=== PATIENT | female | born 1970 | race Caucasian/White ===

== ENCOUNTER 2017-06-03 23:18 | Emergency (ER) | payer MEDICARE, OTHER ==
[~2017-06-03] VITALS: Ht 157.5 cm; Wt 109.5 kg
[~2017-06-03 23:18] MED LIST: CLON.2 PO; COZA100T PO; GEMF600 PO; NORV10TA PO; OXYC30TA3 PO; PREG75 PO; ZOFR4TAB3 SL
[2017-06-03 23:27] VITALS: BP 177/89; PULSE 74; RESP 18; TEMP 98.4; O2SAT 98
[2017-06-03] MEDS ORDERED: TOPI1TAB97 PO (23:33)
[2017-06-03] MEDS ORDERED: LISI-515 PO (23:33)
[2017-06-03] MEDS ORDERED: FLUT50SP EACH NARE (23:33)
[2017-06-03] MEDS ORDERED: ASPI81CH37 CHEW (23:33)
[2017-06-04] MEDS ORDERED: PRED20 PO (00:01)
[2017-06-04] MEDS ORDERED: AZIT250T3 PO (00:01)
[2017-06-04] MEDS ORDERED: BENZ100 PO (00:01)
[2017-06-04] MEDS ORDERED: ALBU6.7H INH (00:01)
--- NOTE | 2017-06-04 00:02 | PD ---
HPI Chief Complaint: ENT Complaint Time Seen by Provider: 23:40 Travel History International Travel<30 days: No Contact w/Intl Traveler<30days: No Traveled to known affect area: No History of Present Illness HPI 46-year-old female arrives describing a hoarse voice as well as a cough and sore throat. She also describes a fullness sensation in the ears bilaterally. No fever. Duration of symptoms has been at least a week. She reports having completed a Solu-Medrol Dosepak a few days ago. Symptoms nearly resolved completely however returned after the steroids were completed and even more rapidly just prior to ER arrival. She's had no chest pain. There is no dyspnea on exertion or orthopnea. PFSH Past Medical History Arthritis: No Autoimmune Disease: Yes (FIBROMYALGIA) Blood Disorders: No Heart Rhythm Problems: No Cancer: No Cardiac Catheterization: No Cardiovascular Problems: No High Cholesterol: Yes Chest Pain: No Congestive Heart Failure: No Cerebrovascular Accident: No Diminished Hearing: No Endocrine: No Fibromyalgia: Yes Gastrointestinal Disorders: Yes (IBS) GERD: No Genitourinary: Yes (KIDNEY REFLEX 1985) Headaches: No Hepatitis: No Hiatal Hernia: No Hypertension: Yes Immune Disorder: Yes Insomnia: Yes Kidney Stones: No Musculoskeletal: Yes Neurologic: Yes Psychiatric: No Reproductive: No Respiratory: No Immunizations Current: No Migraines: Yes Myocardial Infarction: No Renal Failure: No Seizures: No Shingles: Yes (DECEMBER 2016: SCALP) Ulcer: No PNEUMOCCOCAL Vaccine (Year): 1 ?: Not : 8 Para: 4 Miscarriage: 1 : 3 Dilation and Curettage (D&C): Yes (1990) Past Surgical History Abdominal Surgery: Yes (cholecystectomy 2003) Appendectomy: No Cardiac Surgery: No Cholecystectomy: Yes (2003) Coronary Artery Bypass Graft: No Ear Surgery: No Endocrine Surgery: No Eye Surgery: No Genitourinary Surgery: Yes (KIDNEY REFLUX SURGERY 1985) Gynecologic Surgery: Yes (D&C 1990) Hysterectomy: Yes (2014) Neurologic Surgery: No Oral Surgery: No Thoracic Surgery: No Other Surgery: Yes (RECTOCELE REPAIR: 2015) Social History Alcohol Use: No Tobacco Use: Yes (11/03) Substance Use: Yes (QUIT WEED: 2014, history of IV DRUG USE: QUIT JUL 2013) Allergies-Medications (Allergen,Severity, Reaction): Coded Allergies: Reglan (Verified Allergy, Severe, 06/03/17) "I COULDN'T OPEN MY JAW" Tetracycline (Verified Allergy, Severe, Hives, 06/03/17) Reported Meds & Prescriptions Reported Meds & Active Scripts Active Tessalon Perles (Benzonatate) 100 Mg Cap 100 Mg PO TID PRN Azithromycin 250 Mg Tab 250 Mg PO DIRECTED Take 2 tabs (500 mg) on day 1 then 1 tab daily x 4 days. Prednisone 20 Mg Tab 40 Mg PO DAILY 4 Days Take 40 mg (2 tablets) daily for 5 days Proventil Hfa 6.7 GM Inh (Albuterol Sulfate) 90 Mcg/Act Aer 2 Puff INH Q4-6H PRN Reported Aspirin Low Dose (Aspirin) 81 Mg Chew 81 Mg CHEW DAILY Topiramate 25 Mg Tab 25 Mg PO BID Lisinopril 20 Mg Tab 20 Mg PO DAILY Fluticasone Nasal [place] 50 Mcg/Act Naspr 50 Mcg EACH NARE BID 50 mcg/spray Review of Systems Except as stated in HPI: all other systems reviewed are Neg General / Constitutional: No: Fever Physical Exam Narrative GENERAL: 46-year-old female pleasant well-nourished well-developed the voice is somewhat hoarse, occasional cough SKIN: Warm and dry. HEAD: Atraumatic. Normocephalic. EYES: Pupils equal and round. No scleral icterus. No injection or drainage. ENT: No nasal bleeding or discharge. Mucous membranes pink and moist. Minimal fluid behind the tympanic membrane without erythema mastoid tenderness or tenderness about the external ear. NECK: Trachea midline. No JVD. Minimal lymphadenopathy in the submandibular distribution. CARDIOVASCULAR: Regular rate and rhythm. RESPIRATORY: No accessory muscle use. Clear to auscultation. Breath sounds equal bilaterally. GASTROINTESTINAL: Abdomen soft, non-tender, nondistended. Hepatic and splenic margins not palpable. MUSCULOSKELETAL: Extremities without clubbing, cyanosis, or edema. No obvious deformities. NEUROLOGICAL: Awake and alert. No obvious cranial nerve deficits. Motor grossly within normal limits. Five out of 5 muscle strength in the arms and legs. Normal speech. PSYCHIATRIC: Appropriate mood and affect; insight and judgment normal. Data Data Last Documented VS Vital Signs Date Time Temp Pulse Resp B/P Pulse Ox O2 Delivery O2 Flow Rate FiO2 06/03/17 23:27 98.4 74 18 177/89 98 Vital signs reviewed Orders Albuterol Hfa Inh (Proair Hfa Inh) (06/04/17 00:15) Prednisone (Deltasone) (06/04/17 00:15) Azithromycin (Zithromax) (06/04/17 00:15) Benzonatate (Tessalon) (06/04/17 00:15) MDM Medical Decision Making Medical Screen Exam Complete: Yes Emergency Medical Condition: Yes Differential Diagnosis Pneumonia, bronchitis, asthma exacerbation, otitis media, sinusitis, allergies, postnasal drip, GERD Narrative Course Symptomatic treatment will be provided. Return precautions discussed. Patient agreeable with plan. Diagnosis Primary Impression: Cough Additional Impressions: Middle ear effusion Qualified Code: H65.93 - Fluid level behind tympanic membrane of both ears Pharyngitis Qualified Code: J02.9 - Pharyngitis, unspecified etiology Referrals: Primary Care Physician 2 days Additional Instructions: You have a choice when it comes to health care, and we are glad that you chose [facility]. Hopefully, we have met your expectations on today's visit. You are welcome to return to [facility] at any time, as we are committed to meeting the health care needs of our community. Med/Other Pt SpecificInfo: Prescription(s) given Scripts Benzonatate (Tessalon Perles)100 Mg [id number] Mg PO TID PRN (COUGH) #10 CAP Ref 0 Prov:Nino Owens MD 06/04/17 Azithromycin 250 Mg [id number] Mg PO DIRECTED #6 TAB Ref 0 Take 2 tabs (500 mg) on day 1 then 1 tab daily x 4 days. Prov:Nino Owens MD 06/04/17 Prednisone 20 Mg Tab40 Mg PO DAILY 4 Days Ref 0 Take 40 mg (2 tablets) daily for 5 days Prov:Nino Owens MD 06/04/17 Albuterol 6.7 GM Inh (Proventil Hfa 6.7 GM Inh)90 Mcg/Act Aer2 Puff INH Q4-6H PRN (SHORTNESS OF BREATH) #1 INHALER Ref 0 Prov:Nino Owens MD 06/04/17 Disposition: 01 DISCHARGE HOME Condition: Stable Nino Owens MD Jun 04, 2017 00:02
[2017-06-04] MEDS ORDERED: ALBUTEROL SULFATE 90 MCG/ACT HFA 8 GM INHALER INH ONE (00:15)
[2017-06-04] MEDS ORDERED: AZITHROMYCIN 250 MG TAB PO ONE (00:15)
[2017-06-04] MEDS ORDERED: predniSONE 20 MG TAB PO ONE (00:15)
[2017-06-04] MEDS ORDERED: BENZONATATE 100 MG CAP PO ONE (00:15)
== END 2017-06-04 00:20 | disposition home or self-care (01) ==
LOC: PHED 23:18
DX: R05 Cough (principal); H65.93 Unspecified nonsuppurative otitis media, bilateral; J02.9 Acute pharyngitis, unspecified; I10 Essential (primary) hypertension; E78.00 Pure hypercholesterolemia, unspecified; F17.200 Nicotine dependence, unspecified, uncomplicated; Z86.2 Personal history of diseases of the blood and blood-forming organs and certain disorders involving the immune mechanism; Z87.39 Personal history of other diseases of the musculoskeletal system and connective tissue; Z87.19 Personal history of other diseases of the digestive system; Z87.448 Personal history of other diseases of urinary system; Z86.69 Personal history of other diseases of the nervous system and sense organs
CPT/HCPCS: 99284; J7512

== ENCOUNTER 2017-06-18 03:21 | Inpatient (IN) | payer MEDICARE, OTHER ==
[~2017-06-18] VITALS: Ht 157.5 cm; Wt 109.1 kg
[2017-06-18] VITALS (10 sets, daily range): BP systolic 133–170; BP diastolic 77–94; PULSE 62–106; RESP 16–24; TEMP 96.3–105.5; O2SAT 97–100
[~2017-06-18 03:21] MED LIST changes: +ALBU6.7H INH; +ASPI81CH37 CHEW; +AZIT250T3 PO; +BENZ100 PO; -CLON.2 PO; -COZA100T PO; +FLUT50SP EACH NARE; -GEMF600 PO; +LISI-515 PO; -NORV10TA PO; -OXYC30TA3 PO; +PRED20 PO; -PREG75 PO; +TOPI1TAB97 PO; -ZOFR4TAB3 SL
--- NOTE | 2017-06-18 04:12 | PD ---
HPI Chief Complaint: Fever Time Seen by Provider: 04:02 Travel History International Travel<30 days: No Contact w/Intl Traveler<30days: No Traveled to known affect area: No History of Present Illness HPI The patient is a 46-year-old female that complains of fever since 10 PM tonight and pain on the right side of her neck around the parotid gland. He denies any sore throat, ear pain, nausea, vomiting or diarrhea. He states there is no possibility of . PFSH Past Medical History Arthritis: No Autoimmune Disease: Yes (FIBROMYALGIA) Blood Disorders: No Heart Rhythm Problems: No Cancer: No Cardiac Catheterization: No Cardiovascular Problems: No High Cholesterol: Yes Chest Pain: No Congestive Heart Failure: No Cerebrovascular Accident: No Diminished Hearing: No Endocrine: No Fibromyalgia: Yes Gastrointestinal Disorders: Yes (IBS) GERD: No Genitourinary: Yes (KIDNEY REFLEX 1985) Headaches: No Hepatitis: No Hiatal Hernia: No Heparin Induced Thrombocytopen: No Hypertension: Yes Immune Disorder: Yes Implanted Vascular Access Dvce: No Insomnia: Yes Kidney Stones: No Musculoskeletal: Yes Neurologic: Yes Psychiatric: No Reproductive: No Respiratory: No Immunizations Current: No Migraines: Yes Myocardial Infarction: No Renal Failure: No Seizures: No Shingles: Yes (DECEMBER 2016: SCALP) Ulcer: No PNEUMOCCOCAL Vaccine (Year): 1 ?: Not : 8 Para: 4 Miscarriage: 1 : 3 Dilation and Curettage (D&C): Yes (1990) Past Surgical History Abdominal Surgery: Yes (cholecystectomy 2003) Appendectomy: No Cardiac Surgery: No Cholecystectomy: Yes (2003) Coronary Artery Bypass Graft: No Ear Surgery: No Endocrine Surgery: No Eye Surgery: No Genitourinary Surgery: Yes (KIDNEY REFLUX SURGERY 1985) Gynecologic Surgery: Yes (D&C 1990) Hysterectomy: Yes (2014) Neurologic Surgery: No Oral Surgery: No Thoracic Surgery: No Other Surgery: Yes (RECTOCELE REPAIR: 2015) Social History Alcohol Use: No Tobacco Use: Yes (11/03 PPD) Substance Use: Yes (QUIT WEED: 2014, history of IV DRUG USE: QUIT JUL 2013) Allergies-Medications (Allergen,Severity, Reaction): Coded Allergies: doxycycline (Verified Allergy, Severe, Hives, 06/18/17) metoclopramide (Verified Allergy, Severe, 06/18/17) "I COULDN'T OPEN MY JAW" minocycline (Verified Allergy, Severe, Hives, 06/18/17) tigecycline (Verified Allergy, Severe, Hives, 06/18/17) Reported Meds & Prescriptions Reported Meds & Active Scripts Active Reported Aspirin Low Dose (Aspirin) 81 Mg Chew 81 Mg CHEW DAILY Topiramate 25 Mg Tab 25 Mg PO BID Lisinopril 20 Mg Tab 20 Mg PO DAILY Review of Systems Except as stated in HPI: all other systems reviewed are Neg Physical Exam Narrative GENERAL: The patient is alert, oriented 3 in moderate apparent distress with her right neck pain. The temperature is under and 3.1 and the heart rate is 106 and respirations are 24 and the blood pressure 166/94 with oximetry 97%. SKIN: Focused skin assessment warm/dry. No skin rash is noted. HEAD: Atraumatic. Normocephalic. EYES: Pupils equal and round. No scleral icterus. No injection or drainage. ENT: No nasal bleeding or discharge. Mucous membranes pink and moist. The throat is clear without erythema, exudate or abscess. The tympanic membranes are clear. NECK: Trachea midline. No JVD. There is no meningismus but there is tenderness over the right parotid. This could also be lymph node tenderness. CARDIOVASCULAR: Regular rate and rhythm. No murmur appreciated. RESPIRATORY: No accessory muscle use. Clear to auscultation. Breath sounds equal bilaterally. GASTROINTESTINAL: Abdomen soft, non-tender, nondistended. Hepatic and splenic margins not palpable. MUSCULOSKELETAL: No obvious deformities. No clubbing. No cyanosis. No edema. NEUROLOGICAL: Awake and alert. No obvious cranial nerve deficits. Motor grossly within normal limits. Normal speech. PSYCHIATRIC: Appropriate mood and affect; insight and judgment normal. DENTAL: No loose or chipped teeth. No malocclusion. There is no dental tenderness present. Data Data Last Documented VS Vital Signs Date Time Temp Pulse Resp B/P Pulse Ox O2 Delivery O2 Flow Rate FiO2 06/18/17 04:05 102.9 91 18 170/87 100 Room Air Orders Complete Blood Count With Diff (06/18/17 04:09) Comprehensive Metabolic Panel (06/18/17 04:09) Amylase (06/18/17 04:09) Lipase (06/18/17 04:09) Urinalysis - C+S If Indicated (06/18/17 04:09) Lactic Acid (06/18/17 04:10) Beta Hcg (Quant/Titer) (06/18/17 04:09) Blood Culture (06/18/17 05:32) Labs Laboratory Tests Test 06/18/17 06/18/17 04:30 04:40 Lactic Acid Level 1.4 mmol/L White Blood Count 15.8 TH/MM3 Red Blood Count 4.39 MIL/MM3 Hemoglobin 11.8 GM/DL Hematocrit 34.7 % Mean Corpuscular Volume 79.1 FL Mean Corpuscular Hemoglobin 26.8 PG Mean Corpuscular Hemoglobin 33.9 % Concent Red Cell Distribution Width 13.4 % Platelet Count 137 TH/MM3 Mean Platelet Volume 9.5 FL Neutrophils (%) (Auto) % Lymphocytes (%) (Auto) % Monocytes (%) (Auto) % Eosinophils (%) (Auto) % Basophils (%) (Auto) % Neutrophils # (Auto) TH/MM3 Lymphocytes # (Auto) TH/MM3 Monocytes # (Auto) TH/MM3 Eosinophils # (Auto) TH/MM3 Basophils # (Auto) TH/MM3 CBC Comment AUTO DIFF Differential Total Cells 100 Counted Neutrophils % (Manual) 85 % Band Neutrophils % 6 % Lymphocytes % 6 % Monocytes % 3 % Neutrophils # (Manual) 14.4 TH/MM3 Differential Comment FINAL DIFF MANUAL Platelet Estimate LOW Platelet Morphology Comment NORMAL Hematology Comments Urine Color YELLOW Urine Turbidity CLEAR Urine pH 5.5 Urine Specific [place] 1.020 Urine Protein NEG mg/dL Urine Glucose (UA) NEG mg/dL Urine Ketones NEG mg/dL Urine Occult Blood SMALL Urine Nitrite NEG Urine Bilirubin NEG Urine Leukocyte Esterase NEG Urine RBC 4-9 /hpf Urine WBC 3-5 /hpf Urine Squamous Epithelial > 8 /hpf Cells Urine Bacteria RARE /hpf Microscopic Urinalysis Comment CULT NOT INDICATED Sodium Level 136 MEQ/L Potassium Level 3.7 MEQ/L Chloride Level 102 MEQ/L Carbon Dioxide Level 25.7 MEQ/L Anion Gap 8 MEQ/L Blood Urea Nitrogen 29 MG/DL Creatinine 1.10 MG/DL Estimat Glomerular Filtration 53 ML/MIN Rate Random Glucose 111 MG/DL Calcium Level 8.9 MG/DL Total Bilirubin 0.3 MG/DL Aspartate Amino Transf 19 U/L (AST/SGOT) Alanine Aminotransferase 23 U/L (ALT/SGPT) Alkaline Phosphatase 92 U/L Total Protein 7.4 GM/DL Albumin 3.2 GM/DL Amylase Level 52 U/L Lipase 139 U/L Human Chorionic Gonadotropin, 1 MIU/ML Quant MDM Medical Decision Making Medical Screen Exam Complete: Yes Emergency Medical Condition: Yes Medical Record Reviewed: Yes Interpretation(s) The CBC shows a white count of 15,800 with 85 neutrophils and 6 bands. The complete metabolic profile shows a BUN of 29, creatinine 1.1, GFR 53 and albumen 3.2 but is otherwise unremarkable. The beta-hCG is 1, she is not . The lactic acid is normal at 1.4. The urine shows small occult blood , 4-9 red cells but is otherwise normal and culture is not indicated. Differential Diagnosis Parotitis, lymph node infection, viral syndrome, sepsis, urinary tract infection Narrative Course The patient is tender over the right parotid gland or possibly a lymph node on the right anterior cervical chain. She does fit the criteria for sepsis. Sepsis Criteria SIRS Criteria (2 or more): Temp > 100.9 or < 96.8, Heart rate over 90, WBC > 73459, < 4000 or > 10% bands Criteria Outcome: Meets sepsis criteria Physician Communication Physician Communication I discussed the patient with Dr. Molina, she suggested Rocephin and Zithromax and this will be given here in the emergency department. Diagnosis Primary Impression: Sepsis Admitting Information Admitting Physician Requests: Admit Gregor Abraham MD Jun 18, 2017 04:12 Gregor Abraham MD Jun 18, 2017 04:12
[2017-06-18 04:52] LABS: HEMATOCRIT 34.7 % (35.0-46.0); MEAN CELL VOLUME 79.1 FL (80.0-100.0); MEAN CORPUSCULAR HEMOGLOBIN 26.8 PG (27.0-34.0); MEAN CORPUSCULAR HGB CONC 33.9 % (32.0-36.0); PLATELET COUNT 137 TH/MM3 (150-450); RED BLOOD COUNT 4.39 MIL/MM3 (4.00-5.30); RED CELL DISTRIBUTION WIDTH 13.4 % (11.6-17.2); WHITE BLOOD COUNT 15.8 TH/MM3 (4.0-11.0)
[2017-06-18 04:54] LABS: HEMO FLAGS AUTO DIFF
[2017-06-18 05:03] LABS: BLOOD, URINE SMALL (NEG); CHLORIDE 102 MEQ/L (98-107); GLUCOSE,URINE NEG (NEG); KETONE, URINE NEG (NEG); NITRITE,URINE NEG (NEG); PH, URINE 5.5 (5.0-8.5); POTASSIUM 3.7 MEQ/L (3.5-5.1); SODIUM (NA) 136 MEQ/L (136-145)
[2017-06-18 05:08] LABS: ANION GAP 8 MEQ/L (5-15); BANDS 6 % (0-6); BICARBONATE 25.7 MEQ/L (21.0-32.0); BLOOD UREA NITROGEN 29 MG/DL (7-18); NEUTROPHIL # MANUAL DIFF 14.4 TH/MM3 (1.8-7.7); PLATELET ESTIMATE SMEAR LOW (NORMAL); PLATELET MORPHOLOGY NORMAL (NORMAL); POLYS (SEG NEUTROPHILS) 85 % (16-70); SCAN/DIFF FINAL DIFF MANUAL; WBC DIFF SAMPLE 100
[2017-06-18 05:09] LABS: AMYLASE 52 U/L (25-115); URINE COLOR YELLOW (YELLW/STRAW)
[2017-06-18 05:10] LABS: ALT (GPT) 23 U/L (10-53); AST (GOT) 19 U/L (15-37); SQUAMOUS EPITHELIAL CELL URINE > 8 /hpf (0-5)
[2017-06-18 05:11] LABS: BACTERIA, URINE RARE /hpf; COMMENT (UR) CULT NOT INDICATED; CULTURE IF INDICATED CULT NOT INDICATED; GLOMERULAR FILTRATION RATE 53 ML/MIN (>89)
[2017-06-18 05:12] LABS: TOTAL BILIRUBIN ADULT 0.3 MG/DL (0.2-1.0)
[2017-06-18 05:13] LABS: ALKALINE PHOSPHATASE 92 U/L (45-117); BETA HCG QUANT 1 MIU/ML (0-5)
[2017-06-18] MEDS ORDERED: AZITHROMYCIN INJ 500 MG in SODIUM CHLOR 0.9% 250 ML INJ 250 ML IV ONE (06:00)
[2017-06-18] MEDS ORDERED: cefTRIAXone INJ 1,000 MG in SODIUM CHLORIDE 0.9% INJ 100 ML IV ONE (06:00)
[2017-06-18] MEDS ORDERED: ACETAMINOPHEN/HYDROcodone 325 MG/5 MG TAB PO PRN (06:30)
[2017-06-18] MEDS ORDERED: ONDANSETRON HCL 4 MG/2 ML VIAL IVP PRN (06:30)
[2017-06-18] MEDS ORDERED: MAGNESIUM HYDROXIDE SUSP 30 ML CUP PO PRN (06:30)
[2017-06-18] MEDS ORDERED: BISACODYL 10 MG SUPP RECTAL PRN (06:30)
[2017-06-18] MEDS ORDERED: SODIUM CHLORIDE 0.9% FLUSH 10 ML FLUSH IV FLUSH PRN (06:30)
[2017-06-18] MEDS ORDERED: SENNOSIDES 8.6 MG TAB PO PRN (06:30)
[2017-06-18] MEDS ORDERED: LACTULOSE SYRUP 20 GM/30 ML CUP PO PRN (06:30)
[2017-06-18] MEDS ORDERED: ACETAMINOPHEN 325 MG TAB PO PRN (06:30)
[2017-06-18] MEDS ORDERED: Vancomycin Consult Pharmacy 1 EA OTHER SCH (06:30)
[2017-06-18] MEDS ORDERED: ACETAMINOPHEN/HYDROcodone 325 MG/10 MG TAB PO PRN (06:30)
--- NOTE | 2017-06-18 06:46 | RADRPT ---
EXAM DATE/TIME: 06/18/2017 06:30 [place] COMPARISON: CHEST SINGLE AP, January 01, 2015, 12:09. INDICATIONS : Fever. MEDICAL HISTORY : None. SURGICAL HISTORY : Hysterectomy. ENCOUNTER: Initial ACUITY: 1 day PAIN SCORE: 6/10 LOCATION: Bilateral chest FINDINGS: A single view of the chest demonstrates the lungs to be symmetrically aerated without evidence of mas s, infiltrate or effusion. Minimal basilar atelectasis. The cardiomediastinal contours are unremarkab le. Osseous structures are intact. CONCLUSION: 1. Minimal basilar atelectasis. Jacques Mena MD on June 18, 2017 at 6:44 Board Certified Radiologist. This report was verified electronically.
[2017-06-18] MEDS: SODIUM CHLOR 0.9% 1000 ML INJ 1,000 ML IV SCH ×2 (07:22→16:20)
[2017-06-18] MEDS: VANCOMYCIN INJ 1,500 MG in SODIUM CHLORID 0.9% 500 ML INJ 500 ML IV SCH (07:24)
[2017-06-18] MEDS ORDERED: diphenhydrAMINE HCL 50 MG/ML VIAL IV PUSH PRN (07:30)
[2017-06-18] MEDS: SODIUM CHLORIDE 0.9% FLUSH 10 ML FLUSH IV FLUSH SCH ×2 (09:00→21:00)
[2017-06-18] MEDS: ASPIRIN 81 MG CHEW TAB CHEW SCH (09:49)
[2017-06-18] MEDS: TOPIRAMATE 25 MG TAB PO SCH ×2 (09:49→21:11)
[2017-06-18] MEDS: DOCUSATE SODIUM 50 MG/SENNA 8.6 MG TAB PO SCH ×2 (09:49→21:10)
[2017-06-18] MEDS ORDERED: HYDR12.57 PO (09:55)
--- NOTE | 2017-06-18 13:27 | HHI.HP ---
[facility] Annemarie Victor MD Admission Diagnosis sepsis Diagnoses: (1) Fever of unknown origin Diagnosis: Principal (2) Leucocytosis Diagnosis: Principal Chief Complaint: Fever Travel History International Travel<30 Days: No Contact w/Intl Traveler <30 Da: No Traveled to Known Affected Are: No Sepsis Criteria SIRS Criteria (2 or more): Temp > 100.9 or < 96.8, WBC > 36294, < 4000 or > 10 % bands Criteria Outcome: Meets SIRS criteria History of Present Illness Written by Lneo Abraham, acting as scribe for Dr. Rivera on 06/18/17 at 13 :14. 46-year-old female with history of hypertension, fibromyalgia, irritable bowel syndrome, kidney reflux, hyperlipidemia, migraine cephalgia, history of shingles who presented to hospital because of fever. Patient states that she was in her normal state of health until 10 PM last night when she started getting the chills. She checked her temperature and it was 99. Within the next 2 hours her fever went up to 102. She had a tender spot noted on the right side of her neck. She did have some mild headache, denied any visual changes, jaw claudication, rashes, off, congestion, shortness of breath, abdominal pain, nausea, vomiting. Patient did come to emergency department 3 weeks ago for sore throat and cough. Patient was treated by the ER physician with Zithromax, prednisone, Tessalon, Proventil inhaler. Patient states that she is doing better until last night. Patient had workup done emergency department and found to have fever that went up to 105.5, leukocytosis, no infection source has been identified. Is recommended by the ER physician that the patient be admitted for further evaluation and management. Patient states that she is current on her vaccines. Review of Systems Constitutional: COMPLAINS OF: Fever, Chills Musculoskeletal: COMPLAINS OF: Neck pain Past Family Social History Past Medical History Hypertension Hyperlipidemia Fibromyalgia Renal bowel syndrome Renal reflux History of shingles Past Surgical History Cholecystectomy Kidney reflux surgery Hysterectomy Rectocele repair D&C Reported Medications Reported Meds & Active Scripts Active Reported Hydrochlorothiazide 12.5 Mg Cap 12.5 Mg PO DAILY Aspirin Low Dose (Aspirin) 81 Mg Chew 81 Mg CHEW DAILY Topiramate 25 Mg Tab 25 Mg PO BID Lisinopril 20 Mg Tab 30 Mg PO DAILY Allergies: Coded Allergies: doxycycline (Verified Allergy, Severe, Hives, 06/18/17) metoclopramide (Verified Allergy, Severe, 06/18/17) "I COULDN'T OPEN MY JAW" minocycline (Verified Allergy, Severe, Hives, 06/18/17) tigecycline (Verified Allergy, Severe, Hives, 06/18/17) azithromycin (Verified Allergy, Intermediate, RASH WITH HIVES, 06/18/17) Family History Reviewed is significant for mother alive at age 70 with fibromyalgia, father still alive at age 74 with hypertension Social History Patient states that she smokes 1 pack a cigarettes per week since he was 21 years old. She denies any alcohol or illicit drugs Physical Exam Vital Signs Vital Signs Date Time Temp Pulse Resp B/P Pulse Ox O2 Delivery O2 Flow Rate FiO2 06/18/17 12:37 96.3 74 19 144/88 97 06/18/17 09:13 18 06/18/17 08:58 78 18 157/87 97 06/18/17 07:12 97.4 89 20 158/84 97 Room Air 06/18/17 06:13 105.5 94 16 168/88 99 Room Air 06/18/17 04:05 102.9 91 18 170/87 100 Room Air 06/18/17 04:05 18 99 Room Air 06/18/17 03:46 102.9 103 18 154/77 99 06/18/17 03:27 103.1 106 24 166/94 97 Physical Exam GENERAL: Well-developed, well-nourished, in no acute distress. alert and orientated HEENT: Head is normocephalic without any lesions or masses noted. Facial features are symmetric. Eyes: Pupils equal round reactive to light. Extraocular muscles are intact. Conjunctivae were clear. Oropharyngeal: Pharynx without any erythema edema. Tongue is midline without deviation. Buccal mucosa is moist without any masses or lesions NECK: Supple without any masses. Trachea midline no deviation. No JVD, no bruits are appreciated. Mild tenderness noted at the angle of the right jaw. Possibly lymph node enlargement of the tonsillar lymph nodes CARDIAC: Regular rhythm, regular rate. S1/S2 are heard. No murmurs gallops or rubs. LUNGS: Clear to auscultation bilaterally. No wheeze, rhonchi or rales. No use of accessory muscles on inspiration or expiration. ABDOMEN: Soft, nontender. Nondistended. Bowel sounds heard in all 4 quadrants. No organomegaly or masses. Negative rebound, negative guarding EXTREMITIES: No edema, pulses are equal bilaterally. No cyanosis or clubbing NEUROLOGY: Mood and affect appear appropriate. Cranial nerves II through XII grossly intact. Muscle strength 5/5 in upper and lower extremities bilaterally. Deep tendon reflexes are 2+ in upper and lower extremities bilaterally. Laboratory Laboratory Tests Test 06/18/17 06/18/17 04:30 04:40 Lactic Acid Level 1.4 White Blood Count 15.8 Red Blood Count 4.39 Hemoglobin 11.8 Hematocrit 34.7 Mean Corpuscular Volume 79.1 Mean Corpuscular Hemoglobin 26.8 Mean Corpuscular Hemoglobin 33.9 Concent Red Cell Distribution Width 13.4 Platelet Count 137 Mean Platelet Volume 9.5 Neutrophils (%) (Auto) Lymphocytes (%) (Auto) Monocytes (%) (Auto) Eosinophils (%) (Auto) Basophils (%) (Auto) Neutrophils # (Auto) Lymphocytes # (Auto) Monocytes # (Auto) Eosinophils # (Auto) Basophils # (Auto) CBC Comment AUTO DIFF Differential Total Cells 100 Counted Neutrophils % (Manual) 85 Band Neutrophils % 6 Lymphocytes % 6 Monocytes % 3 Neutrophils # (Manual) 14.4 Differential Comment FINAL DIFF MANUAL Platelet Estimate LOW Platelet Morphology Comment NORMAL Hematology Comments Urine Color YELLOW Urine Turbidity CLEAR Urine pH 5.5 Urine Specific [place] 1.020 Urine Protein NEG Urine Glucose (UA) NEG Urine Ketones NEG Urine Occult Blood SMALL Urine Nitrite NEG Urine Bilirubin NEG Urine Leukocyte Esterase NEG Urine RBC 4-9 Urine WBC 3-5 Urine Squamous Epithelial > 8 Cells Urine Bacteria RARE Microscopic Urinalysis Comment CULT NOT INDICATED Sodium Level 136 Potassium Level 3.7 Chloride Level 102 Carbon Dioxide Level 25.7 Anion Gap 8 Blood Urea Nitrogen 29 Creatinine 1.10 Estimat Glomerular Filtration 53 Rate Random Glucose 111 Calcium Level 8.9 Total Bilirubin 0.3 Aspartate Amino Transf 19 (AST/SGOT) Alanine Aminotransferase 23 (ALT/SGPT) Alkaline Phosphatase 92 Total Protein 7.4 Albumin 3.2 Amylase Level 52 Lipase 139 Human Chorionic Gonadotropin, 1 Quant Date/Time Procedure Status Source Growth 06/18/17 07:47 Influenza Types A,B Antigen (HECTOR) - Final Complete Nasal Aspirate NEGATIVE FOR FLU A AND B ANTIGEN.... 06/18/17 06:00 Aerobic Blood Culture Received Blood Peripheral Pending 06/18/17 06:00 Anaerobic Blood Culture Received Blood Peripheral Pending 06/18/17 04:40 Legionella Antigen Received Urine Random Urine Pending 06/18/17 04:40 Streptococcus pneumoniae Antigen (M Received Urine Random Urine Pending Result Diagram: 06/19/17 0544 06/19/17 0544 Imaging Last Impressions Chest X-Ray 06/18/17 0000 Signed Impressions: Service Date/Time: Tuesday, June 18, 2017 06:30 - CONCLUSION: 1. Minimal basilar atelectasis. Jacques Mena MD Septic Shock Reassessment Heart: Regular rate and rhythm Lungs: Clear Skin: Warm, [place] Peripheral Pulses: Bounding Right Radial Bounding Left Radial Assessment and Plan Assessment and Plan Fever of unknown origin, possible underlying sepsis Patient presented with fever with MAXIMUM TEMPERATURE 105.5, leukocytosis with left shift. No infectious source has been identified at this time Chest x-ray does not indicate any acute abnormality Urinalysis was clear Influenza testing is negative Awaiting blood cultures, Legionella, streptococcal antigen Patient started on empirical vancomycin and cefepime Physical examination does not indicate any neck stiffness, soreness, patient is able to turn head side to side and put her chin to her chest. There is no nuchal rigidity, severe cephalgia to suspect any underlying meningitis/ encephalitis Hypertension Blood pressure mildly elevated this time Continue home medications DVT prevention Sequential compression devices Physician Certification 2 Midnight Certification Type: Admission for Inpatient Services Order for Inpatient Services The services are ordered in accordance with Medicare regulations or non- Medicare payer requirements, as applicable. In the case of services not specified as inpatient-only, they are appropriately provided as inpatient services in accordance with the 2-midnight benchmark. Estimated LOS (days): 2 days is the estimated time the patient will need to remain in the hospital, assuming treatment plan goals are met and no additional complications. Post-Hospital Plan: Home Addendum to Inpatient Note Additional Information This note was transcribed by luis Abraham. I, Dr. Carol Rivera personally performed the history, physical exam, and medical decision making; and confirmed the accuracy of the information in the transcribed note. Authenticated by Dr. Carol Rivera on 06/19/17 at 12:58. Leno Abraham Jun 18, 2017 13:27 Carol Rivera MD Jun 19, 2017 12:59
[2017-06-18] MEDS: LISINOPRIL 20 MG TAB PO SCH (13:45)
[2017-06-18] MEDS: HYDROCHLOROTHIAZIDE 12.5 MG CAP PO SCH (13:45)
[2017-06-18] MEDS: CEFEPIME INJ 1,000 MG in SODIUM CHLORIDE 0.9% INJ 100 ML IV SCH (18:56)
[2017-06-19 00:32] VITALS: BP 134/91; PULSE 69; RESP 20; TEMP 96.4; O2SAT 98
[2017-06-19] MEDS: VANCOMYCIN INJ 1,500 MG in SODIUM CHLORID 0.9% 500 ML INJ 500 ML IV SCH (01:33)
[2017-06-19] MEDS: SODIUM CHLOR 0.9% 1000 ML INJ 1,000 ML IV SCH ×2 (02:20→13:13)
[2017-06-19 04:37] VITALS: BP 155/96; PULSE 57; RESP 16; TEMP 96.9; O2SAT 99
[2017-06-19 05:59] LABS: AUTOMATED NEUTROPHIL # 2.8 TH/MM3 (1.8-7.7); BASOPHIL % 0.4 % (0.0-2.0); EOSINOPHIL # 0.2 TH/MM3 (0-0.4); EOSINOPHIL % 4.5 % (0.0-4.0); HEMATOCRIT 32.6 % (35.0-46.0); HEMO FLAGS DIFF FINAL; LYMPH % 24.3 % (9.0-44.0); LYMPHOCYTE # 1.1 TH/MM3 (1.0-4.8); MEAN CELL VOLUME 80.1 FL (80.0-100.0); MEAN CORPUSCULAR HEMOGLOBIN 26.1 PG (27.0-34.0); MEAN CORPUSCULAR HGB CONC 32.6 % (32.0-36.0); MONO % 7.7 % (0.0-8.0); NEUT % 63.1 % (16.0-70.0); PLATELET COUNT 145 TH/MM3 (150-450); RED BLOOD COUNT 4.07 MIL/MM3 (4.00-5.30); RED CELL DISTRIBUTION WIDTH 13.3 % (11.6-17.2); WHITE BLOOD COUNT 4.4 TH/MM3 (4.0-11.0)
[2017-06-19] MEDS: CEFEPIME INJ 1,000 MG in SODIUM CHLORIDE 0.9% INJ 100 ML IV SCH (06:17)
[2017-06-19 06:28] LABS: ALKALINE PHOSPHATASE 72 U/L (45-117); ALT (GPT) 17 U/L (10-53); ANION GAP 6 MEQ/L (5-15); AST (GOT) 14 U/L (15-37); BLOOD UREA NITROGEN 16 MG/DL (7-18); CHLORIDE 110 MEQ/L (98-107); GLOMERULAR FILTRATION RATE 67 ML/MIN (>89); POTASSIUM 3.9 MEQ/L (3.5-5.1); SODIUM (NA) 143 MEQ/L (136-145); TOTAL BILIRUBIN ADULT 0.2 MG/DL (0.2-1.0)
[2017-06-19] MEDS: DOCUSATE SODIUM 50 MG/SENNA 8.6 MG TAB PO SCH (07:55)
[2017-06-19] MEDS: TOPIRAMATE 25 MG TAB PO SCH (07:56)
[2017-06-19] MEDS: HYDROCHLOROTHIAZIDE 12.5 MG CAP PO SCH (07:56)
[2017-06-19] MEDS: SODIUM CHLORIDE 0.9% FLUSH 10 ML FLUSH IV FLUSH SCH (07:56)
[2017-06-19] MEDS: LISINOPRIL 20 MG TAB PO SCH (07:56)
[2017-06-19] MEDS: ASPIRIN 81 MG CHEW TAB CHEW SCH (07:56)
[2017-06-19 08:00] VITALS: BP 188/99; PULSE 64; RESP 18; TEMP 97.9; O2SAT 100
[2017-06-19 12:00] VITALS: BP 167/92; PULSE 68; RESP 18; TEMP 98.4; O2SAT 98
--- NOTE | 2017-06-19 13:04 | HHI.PR ---
Subjective Remarks The patient has had no further fevers. No development of new symptoms. She feels at her baseline. No neck pain. She still feels some tenderness in the sub-mandibular lymph node on the right. Objective Vitals Vital Signs Date Time Temp Pulse Resp B/P (MAP) Pulse Ox O2 Delivery O2 Flow Rate FiO2 06/19/17 04:37 96.9 57 16 155/96 (115) 99 06/19/17 00:32 96.4 69 20 134/91 (105) 98 06/18/17 20:54 98.6 62 18 133/87 (102) 97 06/18/17 20:00 67 06/18/17 16:56 97.1 70 19 135/86 (102) 97 I/O 06/18/17 06/18/17 06/18/17 06/19/17 06/19/17 06/19/17 07:00 15:00 23:00 07:00 15:00 23:00 Intake Total 850 ml Balance 850 ml Intake Oral 850 ml # Voids 6 # Bowel Movements 1 Result Diagram: 06/19/17 0544 06/19/17 0544 Objective Remarks GENERAL: Well-nourished, well-developed pleasant female patient. SKIN: Warm and dry. HEAD: Normocephalic. EYES: No scleral icterus. No injection or drainage. NECK: Supple, trachea midline, no meningeal signs. No JVD or lymphadenopathy. She has mild tenderness at the submandibular region on the right without enlargement of the node, no erythema. CARDIOVASCULAR: Regular rate and rhythm without murmurs, gallops, or rubs. RESPIRATORY: Breath sounds equal bilaterally. No accessory muscle use. GASTROINTESTINAL: Abdomen soft, non-tender, nondistended. EXTREMITIES: No cyanosis, or edema. NEUROLOGICAL: Awake, alert, and oriented x 3. Non-focal. A/P Problem List: (1) Fever of unknown origin ICD Code: R50.9 - Fever, unspecified Status: Acute (2) Leucocytosis ICD Code: D72.829 - Elevated white blood cell count, unspecified Status: Acute Assessment and Plan -Fever of unknown origin. Resolved. The patient had complained of a tender lymph node in the right submandibular region. Chest x-ray, urinalysis and blood cultures are all negative. She has defervesced. No further white blood cell count elevation. We will discharge her home with a prescription for Augmentin. The patient is instructed to return to the ER for return of fever or new symptoms. Follow-up with PCP this week. Patient's questions answered to her satisfaction and she is in agreement with the discharge plan. Carol Rivera MD Jun 19, 2017 13:04
[2017-06-19] MEDS ORDERED: AUGM875T3 PO (13:05)
[2017-06-20] MEDS ORDERED: PHARMACY ORDERED LAB ONE (13:45)
== END 2017-06-19 14:51 | disposition home or self-care (01) | DRG 864 ==
LOC: PHED 03:21 → PHEDA 06:27 → PH3A 09:14
PROVIDERS: ADMIT Family Medicine; ATTEND Family Medicine
DX: R50.9 Fever, unspecified (principal); I10 Essential (primary) hypertension; D72.829 Elevated white blood cell count, unspecified; F17.210 Nicotine dependence, cigarettes, uncomplicated; E78.5 Hyperlipidemia, unspecified; M79.7 Fibromyalgia; K58.9 Irritable bowel syndrome, unspecified
CPT/HCPCS: 71010; 80053; 81001; 82150; 83605; 83690; 84702; 85007; 85025; 85027; 86403; 87040; 87077; 87186; 87205; 87449; 87804; 96374; J0456; J0692; J0696; J3370; J7030; J7040; J7050